=== PATIENT | female | born 1965 | race Two or more races ===

== ENCOUNTER 2019-01-15 06:17 | Emergency (ER) | payer OTHER ==
[~2019-01-15] VITALS: Ht 167.6 cm; Wt 91.5 kg
[~2019-01-15 06:17] MED LIST: FERR-55; IBUP800T48; [UNRECOGNIZED DRUG - CODE]
[2019-01-15 06:20] VITALS: Ht 167.6 cm; Wt 91.5 kg
[2019-01-15] MEDS ORDERED: ONDANSETRON (ODT) 4 MG TAB ODT STA (07:17)
[2019-01-15] MEDS ORDERED: HYDROCODONE/APAP (5/325) TAB PO ONE (07:30)
[2019-01-15] MEDS ORDERED: IBUPROFEN 800 MG TAB PO ONE (07:30)
[2019-01-15] MEDS ORDERED: IBUP800T48 PO (08:00)
[2019-01-15] MEDS ORDERED: ONDA4TAB14 PO (08:00)
[2019-01-15] MEDS ORDERED: HYDR-4011 PO (08:00)
--- NOTE | 2019-01-15 08:06 | ERD ---
ER Documentation Chief Complaint Chief Complaint left upper abd pain, states glf about 1 week ago HPI During the patient's encounter translation services were utilized Language: Martiniquais Aremenian Source: Video 53-year-old female who presents emergency room after mechanical trip and fall approximately 1 week ago. The patient is describing left upper rib pain. The pain is moderate and throbbing and worse to touch and rotational movement. No shortness of breath. No abdominal pain. The patient did state that she hit her head but did not lose consciousness, she does not take anticoagulants. She denies any significant headache. No neck pain. No shoulder pain. Patient is taking Tylenol with moderate relief. ROS All systems reviewed and are negative except as per history of present illness. Medications Home Meds Active Scripts Ibuprofen* (Motrin*) 800 Mg Tab, 800 MG PO Q6H PRN for PAIN AND OR ELEVATED TEMP, #30 TAB Prov:WILLA MORGAN MD 01/15/19 Ondansetron (Ondansetron Odt) 4 Mg Tab.rapdis, 4 MG PO Q6H PRN for NAUSEA AND/OR VOMITING, #20 TAB Prov:WILLA MORGAN MD 01/15/19 Hydrocodone/Acetaminophen ([place] 5-325 Tablet) 1 Each Tablet, 1 TAB PO Q6H PRN for PAIN, #10 TAB Prov:WILLA OMRGAN MD 01/15/19 Reported Medications Ferrous Sulfate* (Ferrous Sulfate*) 325 Mg Tablet 02/02/10 Belladonna Alkaloids/Phenobarb (Antispas Tablet) 16.2 Mg Tablet 02/02/10 Ibuprofen* (Motrin*) 800 Mg Tab 02/02/10 Allergies Allergies: Coded Allergies: No Known Drug Allergies (Verified Allergy, Unknown, 03/17/10) PMhx/Soc History of Surgery: Yes (HYSTERECTOMY) Hx Neurological Disorder: No Hx Respiratory Disorders: No Hx Cardiac Disorders: No Hx Miscellaneous Medical Probl: No Hx Alcohol Use: No Hx Substance Use: No Hx Tobacco Use: No Smoking Status: Never smoker FmHx Family History: No diabetes Physical Exam Vitals Vital Signs Date Temp Pulse Resp B/P (MAP) Pulse Ox O2 O2 Flow FiO2 Time Delivery Rate 01/15/19 97.5 65 18 142/81 100 06:20 (101) Physical Exam Airway is intact Bilateral breath sounds Strong distal pulses No obvious deficits General: Well developed, well nourished, no acute distress Head: Normocephalic, atraumatic Eyes: Pupils equally reactive, EOM intact ENT: Moist mucous membranes Neck: Supple, no lymphadenopathy, No midline tenderness, deformities, step-offs to the cervical spine, full active and passive range of motion without midline pain. Respiratory: Lungs clear bilaterally, no distress, mild soft tissue tenderness to left chest and thorax along ribs 3 and 4 on the left anterior clavicular line without deformities or step-offs Cardiovascular: RRR, no murmurs, rubs, or gallops Abdominal: Soft, non-tender, non-distended, no peritoneal signs, pelvis is stable : Deferred MSK: No edema, no unilateral swelling, 5/5 strength, no midline tenderness deformities or step-offs to the thoracolumbar spine Neurologic: Alert and oriented, moving all extremities, normal speech, no focal weakness, no cerebellar signs Skin: No ecchymoses or bruising to the chest or abdomen Psych: Normal mood Results 24 hrs Current Medications Medications Dose Sig/Edmund Start Time Status Last (Trade) Ordered Route PRN Stop Time Admin Dose Reason Admin 1 tab ONCE ONCE 01/15/19 DC 01/15/19 Acetaminophen PO 07:30 07:25 / 01/15/19 07:31 Hydrocodone Bitart ([place] (5/325)) Ondansetron 4 mg ONCE STAT 01/15/19 DC 01/15/19 HCl (Zofran ODT 07:17 07:25 Odt) 01/15/19 07:19 Ibuprofen 800 mg ONCE ONCE 01/15/19 DC 01/15/19 (Motrin) PO 07:30 07:25 01/15/19 07:31 Procedures/MDM EKG, MONITORS, & DIAGNOSTIC IMAGING: X-ray left ribs and chest: No acute process per radiologist read MEDICAL DECISION MAKING: The patient's symptoms are very muscular skeletal in secondary to chest wall contusion. Lower concern for fracture the x-ray imaging appropriate. This is not consistent with acute coronary syndrome. The patient's pain is reproducible and secondary to a fall 1 week ago. Patient did hit her head but did not lose consciousness. This was 1 week ago and she has a nonfocal neurologic exam, no risk factors for delayed intracranial hemorrhage. I do not believe CT imaging of the brain is appropriate at this time given no red flags for clinically significant traumatic brain injury. The patient does not meet high-risk criteria and based on NEXUS cervical spine criteria there is no indication for cervical spine imaging at this time. ER COURSE: * Patient given pain control medication. X-ray imaging negative. Incentive spirometer provided and education provided. The patient can be safely discharged home with pain control. * The patient's level of injury is above what would be concerning for acute intra-abdominal process. I do not believe CT imaging to rule out splenic laceration is necessary. CONSULTATION: None DISPOSITION PLAN: The patient does not have an identifiable emergent medical condition that warrants inpatient hospitalization at this time. The patient is deemed safe for discharge with outpatient follow-up. We discussed follow up with the patient's primary care doctor within 24 to 48 hours as needed. We also discussed return to the emergency room for worsening symptoms or worsening condition. Outpatient referral: None required Discharge Medications: [place], Zofran, Motrin NARCOTIC MEDICATION: The patient has been prescribed a narcotic medication during this encounter. The patient has been warned about the use of narcotics. The patient should not drive or operate heavy machinery while taking this medication. The patient was also warned about the addictive properties of narcotic medications. Narcan prescription was NOT provided given the following criteria: 1. No more than 5 tablets of [place] 10 mg or 10 tablets of [place] 5 mg were prescribed. 2. Concomitant opiate and benzodiazepine prescriptions were not provided. 3. There is no obvious evidence of prior history of opiate abuse or overdose. Departure Diagnosis: Primary Impression: Contusion of rib on left side Encounter type: initial encounter Qualified Codes: S20.212A - Contusion of left front wall of thorax, initial encounter Condition: Stable Patient Instructions: Rib Contusion Additional Instructions: Llame al doctor jennifer strong (Referral Sources) MAANA y rui flori BENTLEY PARA DENTRO DE FLORI SEMANA. Dgale a la secretaria que nosotros le instruimos hacer esta bentley.Avise o llame si rendon condicin se empeora antes de la bentley. WILLA MORGAN MD Jan 15, 2019 08:06
[2019-01-15 08:36] VITALS: BP 148/89; PULSE 78; RESP 18
== END 2019-01-15 08:47 | disposition home or self-care (01) ==
LOC: E/R 06:17
DX: S20.212A Contusion of left front wall of thorax, initial encounter (principal); W01.0XXA Fall on same level from slipping, tripping and stumbling without subsequent striking against object, initial encounter; Y92.9 Unspecified place or not applicable
CPT/HCPCS: 71045; 71100; Z7502; Z7610